=== PATIENT | male | born 1990 | race African-American/Black ===

== ENCOUNTER 2023-10-09 14:36 | Emergency (ER) | payer BC, SELFPAY ==
[2023-10-09 14:50] VITALS: BP 144/88; PULSE 100; RESP 20; TEMP 36.8; O2SAT 98; BMI 41.0
--- NOTE | 2023-10-09 15:02 | ED_ITS ---
Discharge Plan Disposition Patient Disposition: Home, Self-Care Condition: Good Prescriptions Prescriptions: New doxycycline hyclate 100 mg capsule 100 mg PO BID 7 Days Qty: 14 0RF Referrals Follow up/Referrals: Provider,Referral, MD [Primary Care Provider] - See instructions Activity Restrictions/Add. Instructions Additional Instructions/Restrictions: Call back in 5 days for test results. Avoid sexual relations for the next 10 days. Clinical Impressions Clinical Impression: Concern about STD in male without diagnosis Instructions Patient Instructions: Facts About Sexually Transmitted Infections, How to Detect and Treat STDs Print Language Print Language: Cymraes Discharge ED Provider: [facility] [place] HPI General Stated complaint: STD test Mode of Arrival: Ambulatory Source of Information: Patient Limitations: No Limitations Time Seen by Provider: 10/09/23 15:10 Description of Symptoms (Recalled from Triage Doc. by RN): PATIENT C/O BURNING, PRESSURE AND ITCHING TO GENITAL AREA. PATIENT IS REQUESTING STD TESTING HEENT Symptoms (Recalled from RN notes): No Resp Symptoms (Recalled from RN notes): No Skin Symptoms (Recalled from RN notes): No MS Symptoms (Recalled from RN notes): No Functional Status (Recalled from RN notes): WNL History of Present Illness Provider Complaint: Pt states that his 8 yo daughter informed him that his had another man. Pt states that she denies any STD however he relates that he has had burning, clear drainage and itching at the head of his penis. He states that he has been using otc medication for jock itch, but this has not helped. Pt states that he is concerned that he may have contracted a STD. He denies any testicular pain or swelling, urinary hesitancy, fever, or abdominal pain. Pt reports he saw his pcp 3 months ago and she saw the dribbling and stated that it was probably dribbling urine. Related Data Previous Rx's ?Medication ?Instructions ?Recorded doxycycline hyclate 100 mg capsule 100 mg PO BID 7 days #14 caps 10/09/23 Allergies Allergy/AdvReac Type Severity Reaction Status Date / Time No Known Allergies Allergy Verified 10/09/23 15:01 Worker's Comp Is this a Worker's Comp case?: No [facility] Disclaimer: The information contained in this section may have been updated after the patient was seen, as this information can be updated by other users. Medical History (Updated 10/09/23 @ 16:02 by Clara Andres APRN) Depression Anxiety Asthma Hyperlipidemia Hypertension Surgical History (Updated 10/09/23 @ 15:02 by Radha Charles RN) History of tympanostomy tube placement Social History Smoking Status: Smoker, status unknown alcohol intake: current current occupational status: employed Travel in the last 8 weeks: Inside the [place] ROS Obtained: Yes All systems reviewed & no additional complaints except as documented Constitutional Constitutional: Reports system reviewed and no additional complaints, except as documented Eyes Eyes: Reports system reviewed and no additional complaints, except as documented ENT Ears, Nose, Mouth, and Throat: Reports system reviewed and no additional complaints, except as documented Cardiovascular Cardiovascular: Reports system reviewed and no additional complaints, except as documented Respiratory Respiratory: Reports system reviewed and no additional complaints, except as documented Gastrointestinal Gastrointestingal: Reports system reviewed and no additional complaints, except as documented Genitourinary Male Genitourinary: Reports painful ejaculations and Reports penile discharge Musculoskeletal Musculoskeletal: Reports system reviewed and no additional complaints, except as documented Integumentary/Breasts Skin/Breast: Reports system reviewed and no additional complaints, except as documented Neurologic Neurologic: Reports system reviewed and no additional complaints, except as documented Endocrine Endocrine: Reports system reviewed and no additional complaints, except as documented Hematologic/Lymphatic Henatologic/Lymphatic: Reports system reviewed and no additional complaints, except as documented Allergic/Immunologic Allergic/Immunologic: Reports system reviewed and no additional complaints, except as documented Physical Exam General General appearance: alert and in no apparent distress Head Head exam: atraumatic and normocephalic Eye Eye exam: Present normal appearance ENT ENT exam: Present normal exam and mucous membranes moist Neck Neck exam: Present normal inspection; Absent lymphadenopathy Chest Chest inspection: Present normal inspection and symmetric chest wall rise Respiratory Respiratory exam: Present normal lung sounds bilaterally Cardiovascular Cardiovascular exam: Present regular rate, normal rhythm and normal heart sounds Abdominal Exam Abdominal exam: Present soft and normal bowel sounds exam: Present urethral discharge, normal testicular lie and circumcised Expanded Exam Comment: clear uretheral drainage noted. No rash present. Extremities Exam Extremities exam: Present normal inspection Back Exam Back exam: Present normal inspection Neurological Exam Neurological exam: Present alert and oriented X3 Psychiatric Psychiatric exam: Present normal affect and normal mood Skin Skin exam: Present warm, dry and intact Lymphatic Lymphatic Findings: no adenopathy Medical Decision Making Jamie Inquiry Pt receiving controlled substance: No Jamie was queried for this patient: No Vital Signs: 10/09/23 14:50 Temperature 98.2 F Temperature Source Oral Pulse Rate [Left Brachial] 100 H Respiratory Rate 20 Blood Pressure [Left Arm] 144/88 H Blood Pressure Mean [Left Arm] 106 Blood Pressure Source [Left Arm] Automatic Cuff Blood Pressure Position [Left Arm] Sitting 02 Sat by Pulse Oximetry 98 Oxygen Delivery Method Room Air
[2023-10-09 15:33] LABS: Microscopic, Urine URINE MICROSCOPIC (MICROSCOPIC)
[2023-10-09 15:38] LABS: Appearance,Urine CLEAR (Clear); Bilirubin,Urine Negative (Negative); Blood, Urine Negative (Negative); Color,Urine YELLOW (Yellow); Glucose,Urine (UA) Negative (Negative); Ketones,Urine TRACE (Negative); Leukocyte Esterase,Urine Negative (Negative); Nitrate,Urine Negative (Negative); Protein,Urine Negative (Negative); Urobilinogen,Urine 0.2 EU/dl (0.2)
[2023-10-09 15:51] LABS: Mucus,Urine 4+ /lpf; RBC,Urine Occasional #/hpf (0-3); Squamous Epithelial Cell,Urine Occasional #/hpf (0-5); WBC,Urine Occasional #/hpf (0-3)
[2023-10-09] MEDS: cefTRIAXone 500MG VIAL 500 MG IM (15:58)
[2023-10-09] MEDS: LIDOCAINE 1% 5ML PF VIAL IM (15:58)
[2023-10-09 16:02] VITALS: BP 144/88; PULSE 100; RESP 20; TEMP 36.8; O2SAT 98
[2023-10-14 06:14] LABS: Neisseria gonorrhoeae, NAA Negative (Negative)
== END 2023-10-09 16:07 | disposition home or self-care (01) ==
PROVIDERS: Emergency Provider Nurse Practitioner Family
DX: N48.89 Other specified disorders of penis (principal); Z20.2 Contact with and (suspected) exposure to infections with a predominantly sexual mode of transmission
CPT/HCPCS: 81001; 87070; 87077; 87186; 87205; 87491; 87591; 96372; 99204; 99212; G0463; J0696